=== PATIENT | male | born 1980 | race Caucasian/White ===

== ENCOUNTER 2020-10-25 19:52 | Emergency (ER) | payer OTHER ==
[2020-10-25] MEDS ORDERED: NAPROSYN375 MG PO (22:51)
[2020-10-25] MEDS ORDERED: FLEXERIL5 MG PO (22:51)
== END 2020-10-25 23:13 | disposition home or self-care (01) ==
LOC: FER 19:52
DX: M62.838 Other muscle spasm (principal); F17.220 Nicotine dependence, chewing tobacco, uncomplicated
CPT/HCPCS: 73030; J1885

== ENCOUNTER 2020-12-26 17:43 | Emergency (ER) | payer OTHER ==
[~2020-12-26 17:43] MED LIST: FLEXERIL5 MG PO; NAPROSYN375 MG PO
[2020-12-26 18:50] LABS: BILIRUBIN NEGATIVE (NEGATIVE); BLOOD NEGATIVE Ery/uL (NEGATIVE); CLARITY CLEAR (CLEAR); COLOR YELLOW (YELLOW); GLUCOSE (U) NORMAL (NORMAL); LEUKOCYTES NEGATIVE Leu/uL (NEGATIVE); NITRITE NEGATIVE (NEGATIVE); PROTEIN NEGATIVE (NEGATIVE); SPECIFIC GRAVITY 1.025 (1.001-1.030); UROBILINOGEN 0.2 mg/dL (0.2-1.0)
[2020-12-26] MEDS ORDERED: METRONIDAZOLE500 MG PO (21:51)
== END 2020-12-26 21:58 | disposition home or self-care (01) ==
LOC: FER 17:43
PROVIDERS: Emergency Medicine
DX: Z20.2 Contact with and (suspected) exposure to infections with a predominantly sexual mode of transmission (principal)
CPT/HCPCS: 81003; 99283